=== PATIENT | female | born 1995 | race Caucasian/White ===

== ENCOUNTER 2017-08-08 13:34 | Emergency (ER) | payer BC, SELFPAY ==
[2017-08-08 13:36] VITALS: BP 149/95; PULSE 95; RESP 16; TEMP 36.7; O2SAT 98; BMI 32.5
--- NOTE | 2017-08-08 16:00 | HMH.EDGENADL ---
ED Disposition Clinical Impression: Infected dental caries Disposition: Home, Self-Care Condition on Discharge: Good Instructions: DI for Dental Pain Additional Instructions: use meds and see dentist for follow up Prescriptions: cephALEXin [Keflex 500mg Cap] 500 mg PO Q6H #30 cap - Critical Care Critical Care Time: No Attestation: On 08/08/17, the high probability of a clinically significant, sudden or life threatening deterioration of the following system(s) required my full and direct attention, intervention and personal management. The time I documented below is in addition to time spent performing reported procedures but includes the following listed in this critical care notation. Medical Decision Making - Medical Records Medical records reviewed: Yes: I reviewed the patient's medical records. Vital Signs: 08/08/17 13:36 Temperature 98.0 F Temperature Source Oral Pulse Rate [Right Brachial] 95 H Respiratory Rate 16 Blood Pressure [Right Arm] 149/95 Blood Pressure Mean [Right Arm] 113 Blood Pressure Source [Right Arm] Automatic Cuff Blood Pressure Position [Right Arm] Sitting 02 Sat by Pulse Oximetry 98 Oxygen Delivery Method Room Air - Lab Data Lab results reviewed: Yes: I reviewed the patient's lab results. - Tramaine Inquiry Pt receiving controlled substance: No General Adult HPI - General Chief complaint: PAIN Stated complaint: Tooth Hurting Time Seen by Provider: 08/08/17 16:00 Mode of Arrival: Ambulatory Source of Information: Patient, Relative, Medical Record Limitations: No Limitations Description of Symptoms (Recalled from ER Triage Doc. by RN): Pt c/o toothache on the right side. Advises she knows she has a cavity and it has been bothering her for the past three days - History of Present Illness HPI narrative: pt with rt upper dental pain increased over the last few days Onset (ago): day(s) Location: mouth Severity: moderate Consistency: constant Treatments prior to arrival: NSAID - Related Data Previous Rx's Medication Instructions Recorded cephALEXin [Keflex 500mg Cap] 500 mg PO Q6H #30 cap 08/08/17 Allergies Allergy/AdvReac Type Severity Reaction Status Date / Time No Known Allergies Allergy Verified 08/08/17 14:23 [facility] History I have reviewed the patient's past medical history: Yes Medical History: Denies:: Cancer, Diabetes Mellitus Type 1, Diabetes Mellitus Type 2, MRSA Amputation: No Fractures: No - *Social History Smoking Status: Current every day smoker Tobacco Type: cigarettes Alcohol Intake: never - Psychiatric History Expresses thoughts of harming self/others: None Suicide Plan Description: No Plan ROS Obtained: Yes All systems reviewed & no additional complaints - Constitutional Constitutional: Denies fever(s) - Eyes Eyes: Denies change in vision - ENT Ears, Nose, Mouth, and Throat: Reports as per HPI, Reports dental pain, Denies sore throat, Denies throat swelling - Cardiovascular Cardiovascular: Denies chest pain at rest - Respiratory Respiratory: No chest congestion, No cough - Gastrointestinal Gastrointestingal: Denies: nausea, vomiting - Musculoskeletal Musculoskeletal: Denies joint pain, Denies joint stiffness, Denies joint swelling - Integumentary/Breasts Skin/Breast: Denies rash - Neurologic Neurologic: Denies dizziness, Denies seizure-like activity Physical Exam - General General appearance: alert, in no apparent distress - Head Head exam: normocephalic - Eye Eye exam: Present: PERRL, EOMI - ENT ENT exam: Present: mucous membranes moist - Expanded ENT Exam Teeth exam: Present: dental caries, dental tenderness #, gingival swelling - Neck Neck exam: Present: full ROM, trachea midline - Respiratory Respiratory exam: Absent: respiratory distress - Cardiovascular Cardiovascular exam: Present: regular rate - Extremities Exam Extremities exam: Present: full ROM - Neurologic
--- NOTE | 2017-08-08 16:03 | ED_ITS ---
ED Disposition Clinical Impression: Infected dental caries Disposition: Home, Self-Care Condition on Discharge: Good Instructions: DI for Dental Pain Additional Instructions: use meds and see dentist for follow up Prescriptions: cephALEXin [Keflex 500mg Cap] 500 mg PO Q6H #30 cap - Critical Care Critical Care Time: No Attestation: On 08/08/17, the high probability of a clinically significant, sudden or life threatening deterioration of the following system(s) required my full and direct attention, intervention and personal management. The time I documented below is in addition to time spent performing reported procedures but includes the following listed in this critical care notation. Medical Decision Making - Medical Records Medical records reviewed: Yes: I reviewed the patient's medical records. Vital Signs: 08/08/17 13:36 Temperature 98.0 F Temperature Source Oral Pulse Rate [Right Brachial] 95 H Respiratory Rate 16 Blood Pressure [Right Arm] 149/95 Blood Pressure Mean [Right Arm] 113 Blood Pressure Source [Right Arm] Automatic Cuff Blood Pressure Position [Right Arm] Sitting 02 Sat by Pulse Oximetry 98 Oxygen Delivery Method Room Air - Lab Data Lab results reviewed: Yes: I reviewed the patient's lab results. - Tramaine Inquiry Pt receiving controlled substance: No General Adult HPI - General Chief complaint: PAIN Stated complaint: Tooth Hurting Time Seen by Provider: 08/08/17 16:00 Mode of Arrival: Ambulatory Source of Information: Patient, Relative, Medical Record Limitations: No Limitations Description of Symptoms (Recalled from ER Triage Doc. by RN): Pt c/o toothache on the right side. Advises she knows she has a cavity and it has been bothering her for the past three days - History of Present Illness HPI narrative: pt with rt upper dental pain increased over the last few days Onset (ago): day(s) Location: mouth Severity: moderate Consistency: constant Treatments prior to arrival: NSAID - Related Data Previous Rx's Medication Instructions Recorded cephALEXin [Keflex 500mg Cap] 500 mg PO Q6H #30 cap 08/08/17 Allergies Allergy/AdvReac Type Severity Reaction Status Date / Time No Known Allergies Allergy Verified 08/08/17 14:23 [facility] History I have reviewed the patient's past medical history: Yes Medical History: Denies:: Cancer, Diabetes Mellitus Type 1, Diabetes Mellitus Type 2, MRSA Amputation: No Fractures: No - *Social History Smoking Status: Current every day smoker Tobacco Type: cigarettes Alcohol Intake: never - Psychiatric History Expresses thoughts of harming self/others: None Suicide Plan Description: No Plan ROS Obtained: Yes All systems reviewed & no additional complaints - Constitutional Constitutional: Denies fever(s) - Eyes Eyes: Denies change in vision - ENT Ears, Nose, Mouth, and Throat: Reports as per HPI, Reports dental pain, Denies sore throat, Denies throat swelling - Cardiovascular Cardiovascular: Denies chest pain at rest - Respiratory Respiratory: No chest congestion, No cough - Gastrointestinal Gastrointestingal: Denies: nausea, vomiting - Musculoskeletal Musculoskeletal: Denies joint pain, Denies joint stiffness, Denies joint swelling - Integumentary/Breasts S
[2017-08-08 16:16] VITALS: BP 138/70; PULSE 85; RESP 14; TEMP 36.7; O2SAT 98
== END 2017-08-08 16:18 | disposition home or self-care (01) ==
PROVIDERS: Emergency Provider Emergency Medicine
DX: K02.9 Dental caries, unspecified (principal); F17.210 Nicotine dependence, cigarettes, uncomplicated
CPT/HCPCS: 99203; 99281

== ENCOUNTER 2017-08-24 17:26 | Emergency (ER) | payer BC, SELFPAY ==
[2017-08-24 18:21] VITALS: BP 125/76; PULSE 122; RESP 16; TEMP 36.9; O2SAT 96; BMI 33.2
[2017-08-24 19:00] LABS: UTC Influenza A Antigen Negative (Negative); UTC Influenza B Antigen Negative (Negative)
--- NOTE | 2017-08-24 19:09 | HMH.EDUTC ---
[facility] Disposition Clinical Impression: Viral illness Disposition: Home, Self-Care Condition on Discharge: Good Instructions: DI for Viral Syndrome, DI for Nausea -- Adult Additional Instructions: * No sign of bacterial infection. Likely viral. Virus can take 7-14 days to run their course * Monitor Temp. Tylenol every 4 hours as needed no more then 5 times a day or 4000mg in 24 hours and/or ibuprofen every 6 hours as needed no more then 3200mg in 24 hours (as long as your primary care doctor has told you that it is ok to take both) for fever/aches/pain. ER if fever no less than 101 despite tylenol and ibuprofen * Encourage fluids, water, gatorade, powerade, pedialyte if /toddler/child * warm salt water gargles * warm fluids * sore throat lozenges * sleep elevated * humidifier/vaporizer * No food is ok as long as you or your child is drinking. Once ready to eat, start bland. bananas, rice, applesauce, toast * Contagious until no diarrhea, vomiting, fever x 24 hours without medication * Avoid anti-diarrheals unless told otherwise. Best to let the virus run its course. * zofran as needed for nausea * * Your throat swab was sent for culture. Those results are typically sent to your primary care. Be sure to follow up in 2-3 days if no improvement so they can review those results and treat if necessary. If you don't have primary care, I recommend you get one but in the mean time, you will have to return to a walk in clinic. Follow up with primary care or return to [facility] for new or worsening symptoms OR no noticeable improvement over the next 48 hours. 911 for difficulty breathing or swallowing. Prescriptions: Ondansetron [Zofran 4mg ODT] 4 mg PO Q8H PRN #6 tab.rapdis PRN Reason: Nausea Forms: Work/School Release Time of Disposition: 19:58 Medical Decision Making Vital Signs: 08/24/17 18:21 Temperature 98.4 F Temperature Source Temporal Artery Scan Pulse Rate [Right Brachial] 122 H Respiratory Rate 16 Blood Pressure [Right Arm] 125/76 Blood Pressure Mean [Right Arm] 92 Blood Pressure Source [Right Arm] Automatic Cuff Blood Pressure Position [Right Arm] Sitting 02 Sat by Pulse Oximetry 96 Oxygen Delivery Method Room Air - Lab Data Lab results reviewed: Yes: I reviewed the patient's lab results. Lab Results 08/24/17 18:22: Influenza Type A Ag Negative, Influenza Type B Ag Negative 08/24/17 19:16: Strep Scn Rapid Clinic Negative Orders (Tests/Meds): ORDERS Category Date Time Status Strep Screen Confirmation Stat Micro 08/24/17 19:16 Received - Tramaine Inquiry Pt receiving controlled substance: No [facility] HPI - General Stated complaint: Vomiting, Dizzy, Body Chills Time Seen by Provider: 08/24/17 19:09 Mode of Arrival: Ambulatory Source of Information: Patient Limitations: No Limitations Description of Symptoms (Recalled from Triage Doc. by RN): FLU-LIKE SYMPTOMS HEENT Symptoms (Recalled from RN notes): No Resp Symptoms (Recalled from RN notes): Yes (FLU-LIKE SYMPTOMS) Skin Symptoms (Recalled from RN notes): No MS Symptoms (Recalled from RN notes): No Functional Status (Recalled from RN notes): N/A - History of Present Illness Provider Complaint: c/o I think I have the flu . Started w/ stomach cramping, N/V/D last night. Vomited several times up until 2am. Slept. Woke up and vomited once but hasn't vomited since this morning. Drinking but hasn't ate. Now feeling feverish, tired, aches, chills. No known fever. Unchanged w/ tylenol. Roommate with same symptoms starting today. neg flu. - Related Data Previous Rx's Medication Instructions Recorded cephALEXin [Keflex 500mg Cap] 500 mg PO Q6H #30 cap 08/08/17 Ondansetron [Zofran 4mg ODT] 4 mg PO Q8H PRN #6 tab.rapdis 08/24/17 Allergies Allergy/AdvReac Type Severity Reaction Status Date / Time No Known Allergies Allergy Verified 08/08/17 14:23 - Worker's Comp Is this a Worker's Comp case?: No H
[2017-08-24 19:36] LABS: UTC Strep Screen (Rapid) Negative (Negative)
[2017-08-24 20:06] VITALS: BP 125/76; PULSE 122; RESP 16; TEMP 36.9; O2SAT 96
== END 2017-08-24 20:10 | disposition home or self-care (01) ==
PROVIDERS: Emergency Provider Nurse Practitioner Family
DX: B34.9 Viral infection, unspecified (principal)
CPT/HCPCS: 87804; 87880; 99202